=== PATIENT | male | born 1955 ===

== ENCOUNTER 2024-04-04 06:43 | Day surgery (SDC) | payer OTHER ==
[2024-04-04] MEDS ORDERED: fentaNYL CITRATE 50 MCG/ML AMPUL IV ONE (11:15)
[2024-04-04] MEDS ORDERED: MIDAZOLAM HCL 2 MG/2 ML VIAL IV ONE (11:15)
[2024-04-04] MEDS ORDERED: DIPHENHYDRAMINE HCL 50 MG/ML VIAL 1ML IV ONE (11:15)
== END 2024-04-04 11:55 | disposition home or self-care (01) ==
LOC: AMB-ENDOS 06:43
PROVIDERS: ATTEND Surgery
DX: D12.5 Benign neoplasm of sigmoid colon (principal); K63.5 Polyp of colon; K57.30 Diverticulosis of large intestine without perforation or abscess without bleeding; K64.8 Other hemorrhoids